=== PATIENT | female | born 1975 | race Caucasian/White ===

== ENCOUNTER 2017-02-18 14:30 | Emergency (ER) | payer SELFPAY ==
[2017-02-18 14:53] VITALS: BMI 25.0
--- NOTE | 2017-02-18 14:53 | PDOC ---
Rapid Medical Evaluation Time Seen by Provider: 02/18/17 14:47 Medical Evaluation: Allergies Allergy/AdvReac Type Severity Reaction Status Date / Time No Known Allergies Allergy Verified 01/13/15 09:23 02/18/17 14:47 The patient presents with a chief complaint of: L sided numbness for one day. Also complaining of chest tightness and shortness of breath. Pt. believes her BP is high. Denies recent illness. I have performed a brief in-person evaluation of this patient; Pertinent physical exam findings: speech is intact, smile intact. RRR, CATB I have ordered the following: CBC, CMP, PT/INR, Cardiac profile, EKG, The patient will proceed to the ED for further evaluation.
[2017-02-18 16:10] LABS: BASO % 0.9 % (0-2.0); EOS % 4.2 % (0-4.5); HEMATOCRIT 40.3 % (32.4-45.2); HEMOGLOBIN 13.3 GM/dL (10.7-15.3); LYMPH % 27.3 % (8-40); MCH 29.2 pg (25.7-33.7); MCHC 33.1 g/dl (32.0-36.0); MEAN CELL VOLUME 88.1 fl (80-96); MEAN PLT VOLUME 9.6 fl (7.5-11.1); MONO % 6.7 % (3.8-10.2); NEUT % 60.9 % (42.8-82.8); PLATELET COUNT 309 K/MM3 (134-434); RBC 4.57 M/mm3 (3.60-5.2); RDW 12.7 % (11.6-15.6); WHITE BLOOD COUNT 9.3 K/mm3 (4.0-10.0)
[2017-02-18 16:14] LABS: URINE APPEARANCE CLEAR; URINE BILIRUBIN NEGATIVE (NEGATIVE); URINE BLOOD 1+ (NEGATIVE); URINE COLOR STRAW; URINE GLUCOSE (UA) NEGATIVE (NEGATIVE); URINE KETONE NEGATIVE (NEGATIVE); URINE LEUK ESTERASE NEGATIVE (NEGATIVE); URINE NITRITE NEGATIVE (NEGATIVE); URINE PROTEIN NEGATIVE (NEGATIVE); URINE UROBILINOGEN NEGATIVE mg/dL (0.2-1.0)
[2017-02-18 16:23] LABS: INR 1.08 (0.82-1.09); PROTHROMBIN TIME (PATIENT) 12.2 SEC (9.98-11.88)
[2017-02-18 16:35] LABS: ANION GAP 10 (8-16); BLOOD UREA NITROGEN 9 mg/dL (7-18); CALCIUM 9.4 mg/dL (8.5-10.1); CHLORIDE 104 mmol/L (98-107); CO2 26 mmol/L (21-32); GLUCOSE,RANDOM 87 mg/dL (74-106); SODIUM 140 mmol/L (136-145)
[2017-02-18 16:37] LABS: ALK PHOS 74 U/L (45-117); BILIRUBIN,TOTAL 0.3 mg/dL (0.2-1.0); CREATININE 0.7 mg/dL (0.55-1.02); SGOT/AST 18 U/L (15-37); SGPT/ALT 26 U/L (12-78); TOT PROT 7.7 g/dl (6.4-8.2)
[2017-02-18 17:07] LABS: EPI CELLS FEW /HPF (FEW); URINE BACTERIA MANY /hpf (NONE SEEN); URINE MUCUS RARE
[2017-02-18] MEDS ORDERED: IBUPROFEN 600 MG TABLET (FP) PO ONE (19:51)
[2017-02-18] MEDS ORDERED: MECLIZINE HCL 25 MG TABLET (FP) PO ONE (19:52)
--- NOTE | 2017-02-18 21:06 | PDOC ---
History of Present Illness <Nayana Fuentes - Last Filed: 02/18/17 21:09> - History of Present Illness Initial Comments: 02/18/17 21:09 The patient is a 42 year old maori-speaking female, with a significant past medical history of chronic headaches and sinusitis, who presents to the emergency department with her daughter for SOB, chest tightness, headache and numbness/tingling since yesterday. Patients daughter states that her mothers pain was worse yesterday than today but she came in to make sure everything is okay. Patient states she has been having chronic headaches for about 1 year and she experiences intermittent dizziness (room-spinning). She says that her headaches are exacerbated when she is exposed to smoke (cigarettes, from cooking etc.). She says that nothing exacerbates her dizziness and it can occur in any position (supine, standing, sitting, etc). She states yesterday she began experiencing her headache and dizziness as usual but then the pain worsened and her chest began to feel tight and she became SOB. She also admits to associated numbness and tingling in her lower extremities. She states she took ibuprofen and allergy pills OTC. She denies recent fevers, chills, nausea, vomit, diarrhea or constipation. She denies recent dysuria, frequency, urgency or hematuria. Allergies: NKA Past surgical history: 2 c-sections Social history: Nonsmoker. Denies EtOH use and recreational drug use. <Chani Camacho - Last Filed: 02/18/17 21:44> - General Chief Complaint: Blood Pressure Problem Stated Complaint: Blood Pressure Problem Time Seen by Provider: 02/18/17 14:47 Past History - Past Medical History Anemia: Yes COPD: No - Suicide/Smoking/Psychosocial Hx Smoking Status: No Smoking History: Never smoked Have you smoked in the past 12 months: No Number of Cigarettes Smoked Daily: 0 Information on smoking cessation initiated: No Hx Alcohol Use: No Drug/Substance Use Hx: No Substance Use Type: None <Nayana Fuentes - Last Filed: 02/18/17 21:09> <Chani Camacho - Last Filed: 02/18/17 21:44> - Past Medical History Allergies/Adverse Reactions: Allergies Allergy/AdvReac Type Severity Reaction Status Date / Time No Known Allergies Allergy Verified 12/04/15 09:23 Home Medications: Ambulatory Orders NK [No Known Home Medication] 02/18/17 Review of Systems - Review of Systems Comments:: 02/18/17 21:10 CONSTITUTIONAL: Absent: fever, chills, diaphoresis, generalized weakness, malaise, loss of appetite HEENT: Absent: rhinorrhea, nasal congestion, throat pain, throat swelling, difficulty swallowing, mouth swelling, ear pain, eye pain, visual Changes CARDIOVASCULAR: Present: chest tightness Absent: syncope, palpitations, irregular heart rate, lightheadedness, peripheral edema RESPIRATORY: Present: shortness of breath Absent: cough, dyspnea with exertion, orthopnea, wheezing, stridor, hemoptysis GASTROINTESTINAL: Absent: abdominal pain, abdominal distension, nausea, vomiting, diarrhea, constipation, melena, hematochezia GENITOURINARY: Absent: dysuria, frequency, urgency, hesitancy, hematuria, flank pain, genital pain MUSCULOSKELETAL: Absent: myalgia, arthralgia, joint swelling SKIN: Absent: rash, itching, pallor HEMATOLOGIC/IMMUNOLOGIC: Absent: easy bleeding, easy bruising, lymphadenopathy, frequent infections ENDOCRINE: Absent: unexplained weight gain, unexplained weight loss, heat intolerance, cold intolerance NEUROLOGIC: Present; chronic diffuse headaches, dizziness Absent: focal weakness or paresthesias,unsteady gait, seizure, mental status changes, bladder or bowel incontinence PSYCHIATRIC: Absent: anxiety, depression, suicidal or homicidal ideation, hallucinations. <Chani Camacho - Last Filed: 02/18/17 21:44> *Physical Exam - Vital Signs Last Vital Signs Temp Pulse Resp BP Pulse Ox 97.8 F 77 17 123/76 99 02/18/17 14:49 02/18/17 18:30 02/18/17 18:30 02/18/17 18:30 02/18/17 18:51 <Nayana Fuentes - Last Filed: 02/18/17 21:09> - Vital Signs Last Vital Signs Temp Pulse Resp BP Pulse Ox 97.8 F 77 17 123/76 99 02/18/17 14:49 02/18/17 18:30 02/18/17 18:30 02/18/17 18:30 02/18/17 18:51 - Physical Exam Comments: 02/18/17 21:12 GENERAL: Well-appearing, well-nourished. No apparent distress. HEENT: Normocephalic, atraumatic. PERRL, EOM intact. CARDIOVASCULAR: Normal S1, S2. Regular rate and rhythm. PULMONARY: Clear to auscultation bilaterally. ABDOMEN: Soft, non-distended, non-tender. EXTREMITIES: Normal ROM in all four extremities. No gross deformities. SKIN: Warm, dry. No rash NEUROLOGICAL: No drift, no weakness. Alert, Oriented x3 , No facial droop, No slurred speech, Not confused. <Chani Camacho - Last Filed: 02/18/17 21:44> ED Treatment Course - LABORATORY CBC & Chemistry Diagram: 02/18/17 15:19 02/18/17 15:19 - ADDITIONAL ORDERS Additional order review: Laboratory Results 02/18/17 02/18/17 02/18/17 15:37 15:37 15:19 PT with INR 12.20 H INR 1.08 Sodium Potassium Chloride Carbon Dioxide Anion Gap BUN Creatinine Creat Clearance w eGFR Random Glucose Calcium Total Bilirubin AST ALT Alkaline Phosphatase Creatine Kinase Troponin I Total Protein Albumin Urine Color Straw Urine Appearance Clear Urine pH 8.0 D Ur Specific [place] 1.006 Urine Protein Negative Urine Glucose (UA) Negative Urine Ketones Negative Urine Blood 1+ H Urine Nitrite Negative Urine Bilirubin Negative Urine Urobilinogen Negative Ur Leukocyte Esterase Negative Urine WBC (Auto) 1 Urine RBC (Auto) 1 Ur Epithelial Cells Few Urine Bacteria Many Urine Mucus Rare Urine HCG, Qual Negative 02/18/17 02/18/17 15:19 15:19 PT with INR INR Sodium 140 Potassium 4.0 Chloride 104 Carbon Dioxide 26 Anion Gap 10 BUN 9 D Creatinine 0.7 D Creat Clearance w eGFR > 60 Random Glucose 87 Calcium 9.4 Total Bilirubin 0.3 AST 18 D ALT 26 D Alkaline Phosphatase 74 Creatine Kinase 81 Troponin I < 0.02 Total Protein 7.7 Albumin 4.0 Urine Color Urine Appearance Urine pH Ur Specific [place] Urine Protein Urine Glucose (UA) Urine Ketones Urine Blood Urine Nitrite Urine Bilirubin Urine Urobilinogen Ur Leukocyte Esterase Urine WBC (Auto) Urine RBC (Auto) Ur Epithelial Cells Urine Bacteria Urine Mucus Urine HCG, Qual 02/18/17 15:19 RBC 4.57 MCV 88.1 MCHC 33.1 RDW 12.7 MPV 9.6 D Neutrophils % 60.9 D Lymphocytes % 27.3 D Monocytes % 6.7 Eosinophils % 4.2 D Basophils % 0.9 - RADIOLOGY Radiology Studies Ordered: Category Date Time Status HEAD CT WITHOUT CONTRAST [CT] Stat CT Scan 02/18/17 19:49 Completed - Medications Given in the ED: ED Medications Discontinued Medications Generic Name Dose Route Start Last Admin Trade Name Mj PRN Reason Stop Dose Admin Ibuprofen 600 mg 02/18/17 19:51 02/18/17 20:04 Motrin - PO 02/18/17 19:52 600 mg ONCE ONE Administration Meclizine HCl 25 mg 02/18/17 19:52 02/18/17 19:56 Antivert - PO 02/18/17 19:53 25 mg ONCE ONE Administration <Nayana Fuentes - Last Filed: 02/18/17 21:09> - LABORATORY CBC & Chemistry Diagram: 02/18/17 15:19 02/18/17 15:19 - ADDITIONAL ORDERS Additional order review: Laboratory Results 02/18/17 02/18/17 02/18/17 15:37 15:37 15:19 PT with INR 12.20 H INR 1.08 Sodium Potassium Chloride Carbon Dioxide Anion Gap BUN Creatinine Creat Clearance w eGFR Random Glucose Calcium Total Bilirubin AST ALT Alkaline Phosphatase Creatine Kinase Troponin I Total Protein Albumin Urine Color Straw Urine Appearance Clear Urine pH 8.0 D Ur Specific [place] 1.006 Urine Protein Negative Urine Glucose (UA) Negative Urine Ketones Negative Urine Blood 1+ H Urine Nitrite Negative Urine Bilirubin Negative Urine Urobilinogen Negative Ur Leukocyte Esterase Negative Urine WBC (Auto) 1 Urine RBC (Auto) 1 Ur Epithelial Cells Few Urine Bacteria Many Urine Mucus Rare Urine HCG, Qual Negative 02/18/17 02/18/17 15:19 15:19 PT with INR INR Sodium 140 Potassium 4.0 Chloride 104 Carbon Dioxide 26 Anion Gap 10 BUN 9 D Creatinine 0.7 D Creat Clearance w eGFR > 60 Random Glucose 87 Calcium 9.4 Total Bilirubin 0.3 AST 18 D ALT 26 D Alkaline Phosphatase 74 Creatine Kinase 81 Troponin I < 0.02 Total Protein 7.7 Albumin 4.0 Urine Color Urine Appearance Urine pH Ur Specific [place] Urine Protein Urine Glucose (UA) Urine Ketones Urine Blood Urine Nitrite Urine Bilirubin Urine Urobilinogen Ur Leukocyte Esterase Urine WBC (Auto) Urine RBC (Auto) Ur Epithelial Cells Urine Bacteria Urine Mucus Urine HCG, Qual 02/18/17 15:19 RBC 4.57 MCV 88.1 MCHC 33.1 RDW 12.7 MPV 9.6 D Neutrophils % 60.9 D Lymphocytes % 27.3 D Monocytes % 6.7 Eosinophils % 4.2 D Basophils % 0.9 - Medications Given in the ED: ED Medications Discontinued Medications Generic Name Dose Route Start Last Admin Trade Name Mj PRN Reason Stop Dose Admin Ibuprofen 600 mg 02/18/17 19:51 02/18/17 20:04 Motrin - PO 02/18/17 19:52 600 mg ONCE ONE Administration Meclizine HCl 25 mg 02/18/17 19:52 02/18/17 19:56 Antivert - PO 02/18/17 19:53 25 mg ONCE ONE Administration <Chani Camacho - Last Filed: 02/18/17 21:44> *DC/Admit/Observation/Transfer <Nayana Fuentes - Last Filed: 02/18/17 21:09> - Attestations Scribe Attestion: 02/18/17 21:13 Documentation prepared by Chani Camacho, acting as medical center director for Nayana Fuentes MD. <Chani Camacho - Last Filed: 02/18/17 21:44> Diagnosis at time of Disposition: Atypical chest pain Headache Qualifiers: Headache type: unspecified Headache chronicity pattern: chronic headache Intractability: not intractable Qualified Code(s): R51 - Headache - Discharge Dispostion Disposition: HOME Condition at time of disposition: Stable - Referrals Referrals: Moses Beltrán MD [Staff Physician] - Facundo Morales MD [Staff Physician] - - Patient Instructions Printed Discharge Instructions: DI for Hormonal and Tension Headaches, DI for Dizziness-Nonvertigo Additional Instructions: Please followup with a neurologist for your intermittent chronic headaches Print Language: [place]
[2017-02-18 21:23] VITALS: BP 124/79; PULSE 81; TEMP 98.4
--- NOTE | 2017-02-19 09:31 | EKG ---
Test Reason : Blood Pressure : / mmHG Vent. Rate : 056 BPM Atrial Rate : 056 BPM P-R Int : 148 ms QRS Dur : 078 ms QT Int : 402 ms P-R-T Axes : 024 034 034 degrees QTc Int : 387 ms SINUS BRADYCARDIA OTHERWISE NORMAL ECG NO PREVIOUS ECGS AVAILABLE Confirmed by TYLOR CARRILLO, ZOIE ([id number]) on 02/19/2017 9:31:07 AM Referred By: Confirmed By:ZOIE SNIDER MD
== END 2017-02-18 21:22 | disposition home or self-care (01) ==
LOC: JER 14:30
DX: R07.89 Other chest pain (principal); R51 Headache
CPT/HCPCS: 36415; 70450-TC; 80053; 81003; 81015; 82550; 84484; 84703; 85025; 85610; 93005; 93010; 99283-25